=== PATIENT | female | born 1960 | race Asian ===

== ENCOUNTER 2018-12-30 09:15 | Day surgery (SDC) | payer OTHER | END 2018-12-30 16:19 | disposition home or self-care (01) | LOC: OR 09:15 | PROC: 0DBN8ZZ Excision of Sigmoid Colon, Via Natural or Artificial Opening Endoscopic (ICD-10-PCS; principal; 2018-12-30) | DX: K57.30 Diverticulosis of large intestine without perforation or abscess without bleeding (principal); K63.5 Polyp of colon; K64.8 Other hemorrhoids; Z12.11 Encounter for screening for malignant neoplasm of colon | CPT/HCPCS: J2001; J2250; J2405; J2704 ==